=== PATIENT | male | born 1995 | race Caucasian/White ===

== ENCOUNTER 2020-12-18 18:26 | Emergency (ER) | payer BC, SELFPAY ==
--- NOTE | ~2020-12-18 | XR_ITS ---
XR finger 3rd RT min 2V DATE: 12/18/2020 19:07 INDICATION: Pain and swelling of distal third digit TECHNIQUE: 3 views COMPARISON: None FINDINGS: No fracture, dislocation, periosteal reaction or bone destruction. There is mild osteoarthr itis of the distal interphalangeal joint. No radiopaque soft tissue foreign body. No subcutaneous emp hysema. 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 Reviewed, dictated and finalized at location A.
[2020-12-18 18:44] VITALS: BP 121/79; PULSE 106; RESP 20; TEMP 36.6; O2SAT 99
[2020-12-18 18:57] VITALS: BP 121/79; PULSE 106; RESP 20; TEMP 36.6; O2SAT 99
--- NOTE | 2020-12-18 19:09 | ED.UPPEXIN ---
HPI - Extremity Injury (Upper) General Chief Complaint: Extremity Injury, Upper Stated Complaint: Possible injury to middle Finger on right Hand Time Seen by Provider: 12/18/20 19:00 Source: patient Mode of arrival: ambulatory Limitations: no limitations History of Present Illness HPI narrative: Rojelio Sarah is a 25 yo Male [facility] third finger right hand injury to the distal portion of the finger on the palmar side. It appears to be old. He states that he thinks it happened over the weekend when he was drinking but the area itself is callused and is questionable whether it is a new injury. Related Data Allergies Allergy/AdvReac Type Severity Reaction Status Date / Time No Known Allergies Allergy Verified 12/18/20 18:56 Review of Systems Review of Systems: CONSTITUTIONAL: Denies fever, chills, sweats. EYES: Denies visual changes, redness, discharge. ENT: Denies rhinorrhea, congestion, sore throat, otalgia. CARDIOVASCULAR: Denies chest pain, palpitations, edema. RESPIRATORY: Denies dyspnea, wheezing, cough GASTROINTESTINAL: Denies abdominal pain, nausea, vomiting, diarrhea. GENITOURINARY: Denies dysuria, hematuria, abnormal discharge SKIN: Denies rash or itching. NEUROLOGIC: Denies numbness, or focal weakness. PSYCHIATRIC: Denies anxiety or depression. Right hand third finger distal joint pain PMFSH Past Medical History Medical History Rhabdomyolysis Social History Social History (Updated 12/18/20 @ 19:19 by Alicia De Souza CNP) Smoking packs per day: 1 Smoking cigarettes per day: 20.0 Smoking status: Current every day smoker Alcohol intake: current Comments At time of signature, I agree with nursing past medical, surgical, social and family history. There is no relevant family history pertinent to the presenting complaint. Exam Narrative: GENERAL: This is a well-nourished, well-developed patient, in mild distress. HEAD: normocephalic, atraumatic. EYES: Sclera clear/white. Vision is grossly intact. EARS: External ears normal, Hearing grossly intact. NOSE: External nose normal without nasal discharge, THROAT: Mucous membranes moist, NECK: Neck supple, non-tender CARDIOVASCULAR: Regular rate and rhythm without murmurs, gallops, or rubs. RESPIRATORY: Clear to auscultation. Breath sounds equal bilaterally. No wheezes, rales, or rhonchi. GASTROINTESTINAL: Abdomen soft, SKIN: warm, intact with no suspicious lesions or rash, good texture and turgor. NEURO: awake, alert, and oriented to person, place and time. There were no obvious focal neurologic abnormalities. Steady gait EXTREMITIES: Normal range of motion. BACK: Nontender without deformity Course Course Emergency Course: Here for pain right hand third distal joint Finger appears somewhat swollen x-ray is negative for any soft tissue foreign body no subcutaneous emphysema mild osteoarthritis is present Finger is soaked to see if soften tissue Vital Signs Vital signs: Vital Signs Temperature 97.8 F 12/18/20 18:44 Pulse Rate 106 H 12/18/20 18:44 Respiratory Rate 20 12/18/20 18:44 Blood Pressure 121/79 12/18/20 18:44 Pulse Oximetry 99 12/18/20 18:44 Temperature 97.8 F 12/18/20 18:57 Pulse Rate 106 H 12/18/20 18:57 Respiratory Rate 20 12/18/20 18:57 Blood Pressure 121/79 12/18/20 18:57 Pulse Oximetry 99 12/18/20 18:57 MDM - Extremity Injury (Upper) Differential Diagnosis Differential diagnosis: Likely finger sprain and other (Finger fracture vs felon) Critical Care Time Critical Care Time Critical Care Time: No Discharge Plan Discharge Clinical Impression: Finger pain, right Patient Disposition: Home, Self-Care Condition: Stable Instructions: Antibiotic Form, Swollen Joint (ED) Additional Instructions: Continue to soak finger 3-4 times a day; take antibiotics as ordered Prescriptions: New sulfame
== END 2020-12-18 19:50 | disposition home or self-care (01) ==
PROVIDERS: Emergency Provider Nurse Practitioner
DX: M79.644 Pain in right finger(s) (principal); F17.210 Nicotine dependence, cigarettes, uncomplicated; M62.82 Rhabdomyolysis
CPT/HCPCS: 73140; 99213; G0463

== ENCOUNTER 2021-04-10 15:01 | Emergency (ER) | payer BC, SELFPAY ==
[2021-04-10 15:08] VITALS: BP 134/81; PULSE 144; RESP 20; TEMP 36.8; O2SAT 100
--- NOTE | 2021-04-10 15:28 | ED.URI ---
HPI - URI/Sore Throat General Chief Complaint: Upper Respiratory Infection Stated Complaint: Cough/Congestion/Fever Time Seen by Provider: 04/10/21 15:03 Source: patient Mode of arrival: ambulatory Limitations: no limitations History of Present Illness HPI Narrative: 25 year old male presents to [facility] with complaints of cough, congestion and runny nose, body aches and chills X 3 days. Pt states that he had court today and was sent home due to 102 fevers. Patient states that his brother was recently diagnosed with COVID. Pt has not been COVID or influenza vaccinated. Pt denies SOB, wheezing, nausea, vomiting or diarrhea MD elicited complaint: fever, cough, rhinorrhea and nasal congestion Onset (ago): day(s) (3) Description of mucous: clear Able to tolerate fluids by mouth: Yes Associated symptoms: fever, chills, rhinorrhea, nasal congestion and cough Related Data Allergies Allergy/AdvReac Type Severity Reaction Status Date / Time No Known Allergies Allergy Verified 04/10/21 15:16 Review of Systems Constitutional: Constitutional: Reports chills, Denies fever(s) and Denies weakness ENT: Denies dizziness, Reports nasal congestion and Denies sore throat Cardiovascular: Cardiovascular: Denies chest pain, Denies rapid heart rate and Denies radiating jaw, neck or arm pain Respiratory: Respiratory: Reports cough, Denies dyspnea and Denies wheezing Gastrointestinal: Gastrointestinal: Denies abdominal pain, Denies diarrhea, Denies nausea and Denies vomiting Integumentary/Breasts: Skin/Breast: Denies rash PMFSH Past Medical History Medical History (Updated 04/10/21 @ 15:58 by Emilie Calderon APRN) Rhabdomyolysis Surgical History Surgical History (Updated 04/10/21 @ 16:19 by Emilie Calderon APRN) S/P appy Family History Family History (Updated 04/10/21 @ 16:18 by Emilie Calderon APRN) Mother COPD (chronic obstructive pulmonary disease) Social History Social History Smoking packs per day: 1 Smoking cigarettes per day: 20.0 Smoking status: Current every day smoker Alcohol intake: current Comments At time of signature, I agree with nursing past medical, surgical, social and family history. There is no relevant family history pertinent to the presenting complaint. Exam Const: General: healthy appearing and no acute distress Orientation/consciousness: patient oriented x3 HENMT: Ears: external ears normal, TM's normal bilaterally and EAC's normal General nose exam: Normal nares present Mouth: Yes moist mucous membranes Teeth and gingiva: dentition normal Throat: uvula midline Neck: Neck: normal visual inspection Resp: Effort & Inspection: normal respiratory effort, not labored and not tachypneic Auscultation: clear to auscultation bilaterally Cardio: Rhythm: regular rhythm Other: tachycardia; pt reports hx of severe anxiety and his HR is always elevated. Skin: General skin exam: normal color Rashes: no rashes Neuro: General: patient oriented x3 and moves all extremities Course Vital Signs Vital signs: Vital Signs Temperature 36.8 C 04/10/21 15:08 Pulse Rate 144 H 04/10/21 15:08 Respiratory Rate 20 04/10/21 15:08 Blood Pressure 134/81 04/10/21 15:08 Pulse Oximetry 100 04/10/21 15:08 Temperature 36.8 C 04/10/21 15:08 Pulse Rate 110 H 04/10/21 15:45 Respiratory Rate 20 04/10/21 15:08 Blood Pressure 134/81 04/10/21 15:08 Pulse Oximetry 100 04/10/21 15:08 MDM - URI/Sore Throat Differential Diagnosis Differential diagnosis: Likely croup, otitis media and sinusitis Lab Data Labs: Lab Results 04/10/21 Range/Units 15:30 POC SARS CoV-2 Ag Negative (Negative) Influenza A Screen Negative Reference Range: Negative Influenza B Screen Negative Reference Range: Negati
[2021-04-10 15:45] VITALS: PULSE 110
== END 2021-04-10 16:11 | disposition home or self-care (01) ==
PROVIDERS: Emergency Provider Nurse Practitioner Family
DX: B34.9 Viral infection, unspecified (principal); F17.210 Nicotine dependence, cigarettes, uncomplicated; Z20.822 Contact with and (suspected) exposure to COVID-19
CPT/HCPCS: 87426; 87804; 99213; C9803; G0463